=== PATIENT | male | born 1985 | race African-American/Black ===

== ENCOUNTER 2017-12-28 23:57 | Emergency (ER) | payer MEDICAID ==
[~2017-12-28] VITALS: Ht 170.2 cm; Wt 81.6 kg
[2017-12-29] MEDS ORDERED: PROAIR HFA8.5 GM INH (00:08)
[2017-12-29] MEDS ORDERED: Bactrim-DS 1 tab ORAL ONE (00:30)
[2017-12-29] MEDS ORDERED: Tetanus/Diptheria/Pertussis Vaccine 0.5ml Syr IM ONE (00:30)
[2017-12-29] MEDS ORDERED: Neosporin Oint Ud Pkt TOP ONE (00:30)
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
[2017-12-29] MEDS ORDERED: BACTRIM DS TAB1 EAC1 ORAL (01:28)
[2017-12-29] MEDS ORDERED: IBUPROFEN600 MG ORAL (01:28)
[2017-12-29] MEDS ORDERED: BACITRACIN15 GM TOPIC (01:28)
[2017-12-29 01:41] VITALS: BP 132/79
--- NOTE | 2017-12-29 09:54 | Diagnostic Imaging Report ---
Indication: Pain. Assess for foreign body. Technique: XRAY Knee 1-2v L Comparison: None Findings: There is no acute fracture or dislocation. Anatomic alignment and joint spaces within normal limits. Question mild swelling of the lower thigh. No radiopaque foreign body seen. Impression: No evidence of acute fracture or dislocation. No radiopaque foreign body seen.
== END 2017-12-29 01:42 | disposition home or self-care (01) ==
LOC: EMR 12-29 00:12
DX: S60.512A Abrasion of left hand, initial encounter (principal); S60.511A Abrasion of right hand, initial encounter; W45.8XXA Other foreign body or object entering through skin, initial encounter; Y92.89 Other specified places as the place of occurrence of the external cause; L02.416 Cutaneous abscess of left lower limb; L03.116 Cellulitis of left lower limb; Z23 Encounter for immunization; J45.909 Unspecified asthma, uncomplicated; Z88.0 Allergy status to penicillin; Z91.018 Allergy to other foods; Z91.013 Allergy to seafood
CPT/HCPCS: 90471; 90715; 99284